=== PATIENT | male | born 1950 | race Asian ===

== ENCOUNTER 2018-01-02 15:27 | Emergency (ER) | payer BC, OTHER ==
[~2018-01-02] VITALS: Ht 167.6 cm; Wt 73.0 kg
[2018-01-02] MEDS ORDERED: SODIUM CHLORIDE 0.9% 1,000 ML IV ONE ×2 (15:34→18:00)
[2018-01-02] MEDS ORDERED: LEVOFLOXACIN 500 MG/100 ML PREMIX BAG IV ONE (15:45)
[2018-01-02] MEDS ORDERED: ACETAMINOPHEN 325 MG TAB PO ONE (15:45)
[2018-01-02] MEDS ORDERED: TETANUS-DIPTH-ACEL PERTUSSIS 0.5ML SYRG IM ONE (15:45)
[2018-01-02 15:59] LABS: Basophils # (auto) 0 uL; Basophils % (auto) 0.2 % (0.0-2.0); Eosinophils # (auto) 0 uL; Hematocrit 41.5 % (41.0-53.0); Hemoglobin 14.1 g/dL (13.5-17.5); Lymphocytes # (auto) 0.5 uL; Lymphocytes % (auto) 3.6 % (10.0-50.0); Mean Corpuscular Hemoglobin 30.9 pg (28.0-32.0); Mean Corpuscular Volume 90.8 fL (80.0-100.0); Monocytes # (auto) 0.4 uL; Neutrophils # (auto) 12.2 uL; Neutrophils % (auto) 93.2 % (37.0-80.0); Platelet Count (auto) 171 10^3/uL (140-450); Red Blood Cells 4.57 10^6/uL (4.5-5.90); White Blood Cell 13.1 10^3/uL (4.4-10.8)
[2018-01-02 16:22] LABS: Albumin 3.6 g/dL (3.4-5.0); BUN/Creatinine Ratio 10.9; Bilirubin, Total 0.7 mg/dL (0.2-1.0); Magnesium 2.1 mg/dL (1.6-2.6); Potassium 3.5 mmol/L (3.5-5.1); Total Protein 7.2 g/dL (6.4-8.2)
[2018-01-02 16:24] LABS: Lactic Acid w/Reflex 4.5 mmol/L (0.4-2.0)
[2018-01-02] MEDS ORDERED: SODIUM CHLORIDE 0.9% 1,000 ML IVB ONE (16:37)
[2018-01-02 17:21] LABS: Calcium 8.8 mg/dL (8.5-10.1)
[2018-01-02 18:19] LABS: Urine Bacteria NONE SEEN /hpf (None Seen); Urine Blood TRACE /uL (Negative); Urine Mucus FEW (None Seen); Urine Specific Gravity 1.025 (1.001-1.035); Urine WBC 77 /hpf (0 - 3)
[2018-01-02 19:24] VITALS: BP 143/67
== END 2018-01-02 20:23 | disposition home or self-care (01) ==
LOC: EDBD 15:27 → ER 15:31
DX: N39.0 Urinary tract infection, site not specified (principal); E86.0 Dehydration; K80.20 Calculus of gallbladder without cholecystitis without obstruction; T67.5XXA Heat exhaustion, unspecified, initial encounter; R74.0 Nonspecific elevation of levels of transaminase and lactic acid dehydrogenase [LDH]
CPT/HCPCS: 36415; 71045; 73120; 73200; 74176; 76705; 80053; 81001; 83605; 83735; 85025; 87040; 90471; 90715; 93005; 94761; 96361; 96374; 99285; J1956; J7030